=== PATIENT | male | born 1995 | race Two or more races ===

== ENCOUNTER 2017-11-16 19:39 | Emergency (ER) | payer OTHER | END 2017-11-16 19:53 | disposition left against medical advice (07) | LOC: ER 19:50 | DX: T15.92XA Foreign body on external eye, part unspecified, left eye, initial encounter (principal); Z53.21 Procedure and treatment not carried out due to patient leaving prior to being seen by health care provider; X58.XXXA Exposure to other specified factors, initial encounter; Y93.89 Activity, other specified; Y99.8 Other external cause status; Y92.89 Other specified places as the place of occurrence of the external cause ==

== ENCOUNTER 2017-11-17 07:35 | Emergency (ER) | payer SELFPAY ==
[~2017-11-17] VITALS: Ht 165.1 cm; Wt 68.2 kg
[2017-11-17 07:42] VITALS: BP 113/67
[2017-11-17] MEDS ORDERED: TETRACAINE HCL 0.5% OPTH(EYE) SOLN 4ML RIGHTEYE ONE (08:00)
[2017-11-17] MEDS ORDERED: FLUORESCEIN SOD 1 MG TEST STRIP EACHEYE ONE (08:00)
[2017-11-17] MEDS ORDERED: TETANUS-DIPTH-ACEL PERTUSSIS 0.5ML SYRG IM ONE (09:15)
== END 2017-11-17 09:25 | disposition home or self-care (01) ==
LOC: ER 07:35
DX: S05.01XA Injury of conjunctiva and corneal abrasion without foreign body, right eye, initial encounter (principal); X58.XXXA Exposure to other specified factors, initial encounter; Y93.89 Activity, other specified; Y99.8 Other external cause status; Y92.89 Other specified places as the place of occurrence of the external cause
CPT/HCPCS: 90471; 90715

== ENCOUNTER 2019-11-18 00:28 | Emergency (ER) | payer SELFPAY ==
[~2019-11-18] VITALS: Ht 170.2 cm; Wt 77.1 kg
[2019-11-18] MEDS ORDERED: HYDROmorphone HCL 2 MG/ML VL ONE (00:40)
[2019-11-18] MEDS ORDERED: ONDANSETRON HCL 4 MG/2 ML VIAL ONE (00:40)
[2019-11-18] MEDS ORDERED: HYDROmorphone HCL 2 MG/ML VL IV ONE ×3 (00:45→04:45)
[2019-11-18] MEDS ORDERED: ONDANSETRON HCL 4 MG/2 ML VIAL IV ONE (00:45)
[2019-11-18 01:24] LABS: Basophils # (auto) 0.1 10 ^3/uL (0-0.2); Basophils % (auto) 0.7 % (0.0-2.0); Eosinophils # (auto) 0.6 10 ^3/uL (0-0.8); Eosinophils % (auto) 6.6 % (0.0-7.0); Hematocrit 48.5 % (41.0-53.0); Hemoglobin 17.1 g/dL (13.5-17.5); Lymphocytes # (auto) 2.1 10 ^3/uL (0.4-5.4); Lymphocytes % (auto) 21.8 % (10.0-50.0); Mean Corpuscular Hemoglobin 32.2 pg (28.0-32.0); Mean Corpuscular Hgb Conc. 35.3 g/dL (32.0-36.0); Mean Corpuscular Volume 91.1 fL (80.0-100.0); Monocytes # (auto) 0.7 10 ^3/uL (0-1.3); Monocytes % (auto) 7.3 % (0.0-12.0); Neutrophils # (auto) 6.2 10 ^3/uL (1.6-8.6); Neutrophils % (auto) 63.6 % (37.0-80.0); Nucleated Red Blood Cells % 0.1 %; Platelet Count (auto) 316 10^3/uL (140-450); Red Blood Cells 5.32 10^6/uL (4.5-5.90); Red Cell Distribution Width 13.4 % (11.8-14.3); White Blood Cell 9.7 10^3/uL (4.4-10.8)
[2019-11-18 01:39] LABS: INR 0.98 (0.9-1.15); Partial Thromboplastin Time 24.2 sec (23.0-31.2)
[2019-11-18 01:40] LABS: Albumin 4.8 g/dL (3.4-5.0); Calcium 9.4 mg/dL (8.5-10.1); Potassium 3.2 mmol/L (3.5-5.1)
[2019-11-18 01:43] LABS: Bilirubin, Total 0.6 mg/dL (0.2-1.0)
[2019-11-18 04:58] VITALS: BP 139/79
== END 2019-11-18 05:38 | disposition short-term general hospital (02) ==
LOC: EDBD 00:28 → ER 00:36
DX: S82.301A Unspecified fracture of lower end of right tibia, initial encounter for closed fracture (principal); S82.831A Other fracture of upper and lower end of right fibula, initial encounter for closed fracture; W22.8XXA Striking against or struck by other objects, initial encounter; Y93.89 Activity, other specified; Y99.8 Other external cause status; Y92.89 Other specified places as the place of occurrence of the external cause
CPT/HCPCS: 29505; 36415; 73590; 80053; 85025; 85610; 85730; 96374; 96375; 96376; 99285; J1170; J2405

== ENCOUNTER 2019-12-13 07:59 | Emergency (ER) | payer MEDICAID, OTHER ==
[~2019-12-13] VITALS: Ht 167.6 cm; Wt 81.6 kg
[2019-12-13 08:10] VITALS: BP 125/96
[2019-12-13] MEDS ORDERED: HYDROcodone-ACET 10/325MG TAB PO ONE (09:00)
== END 2019-12-13 09:01 | disposition home or self-care (01) ==
LOC: ER 07:59
DX: Z76.0 Encounter for issue of repeat prescription (principal)